=== PATIENT | female | born 1985 | race American Indian/Alaskan Native ===

== ENCOUNTER 2017-11-21 20:48 | Emergency (ER) | payer MEDICAID ==
--- NOTE | 2017-11-21 22:04 | EDPHY ---
H & P Stated Complaint: dizzy ?? vertigo fraser Time Seen by Provider: 11/21/17 22:04 HPI/ROS: HPI CHIEF COMPLAINT: Headache, dizziness, vertigo HISTORY OF PRESENT ILLNESS: This patient 32-year-old female, she has a history of gestational diabetes, she is currently 32 weeks and her due date is January 15, she presents to the emergency room with a headache. And dizziness. She reports to me that she has a long history of vertigo and migraine headaches. She states she has to suffer from dizziness quite often. She presents emergency room stating that around 6:00 p.m. She had dizziness room spinning sensation with associated nausea but not vomiting. And then gradually developed a headache. She describes a frontal throbbing headache. Behind her eyes in front of her ears. She has associated nausea but no vomiting. Denies any neck pain. Denies recent illness denies fever. Denies chest pain or shortness of breath. Denies abdominal pain. Past Medical History: Gestational diabetes. Past Surgical History: No recent surgery Social History: Denies drugs alcohol tobacco. Family History: Noncontributory ROS REVIEW OF SYSTEMS: A comprehensive 10 point review of systems is otherwise negative aside from elements mentioned in the history of present illness. Exam Constitutional nontoxic appearing, triage nursing summary reviewed, vital signs reviewed, awake/alert. Eyes normal conjunctivae and sclera, EOMI, PERRLA. HENT normal inspection, atraumatic, moist mucus membranes, no epistaxis, neck supple/ no meningismus, no raccoon eyes. Respiratory clear to auscultation bilaterally, normal breath sounds, no respiratory distress, no wheezing. Cardiovascular rate normal, regular rhythm, no murmur, no edema, distal pulses normal. Gastrointestinal gravid uterus, 30+ weeks. soft, non-tender, no rebound, no guarding, normal bowel sounds, no distension, no pulsatile mass. Genitourinary no CVA tenderness. Musculoskeletal no midline vertebral tenderness, full range of motion, no calf swelling, no tenderness of extremities, no meningismus, good pulses, neurovascularly intact. Skin pink, warm, & dry, no rash, skin atraumatic. Neurologic awake, alert and oriented x 3, AAOx3, moves all 4 extremities equally, motor intact, sensory intact, CN II-XII intact, normal cerebellar, normal vision, normal speech. Psychiatric normal mood/affect. Heme/Lymph/Immune no lymphadenopathy. Differential Diagnosis: Includes but is not limited to in a particular order electrolyte disturbance, dehydration, vertigo, intracranial bleed, sinus venous thrombosis, urinary tract infection, doubt CVA or doubt vertebral dissection or posterior circulation stroke. She has a normal neurological exam here in emergency room. She is and it is possible she has a sinus venous thrombosis. Medical Decision Making: Plan for this patient IV establishment IV fluid bolus 1 L normal saline, IV Zofran 4 mg for nausea, IV Dilaudid 0.5 mg for pain control. CT scan head without contrast reason for CT scan head includes headache, . Rule out intracranial bleed. MRV to rule out sinus venous thrombosis. Re-evaluate. Re-evaluation: MRI brain without and MR V shows no evidence of sinus venous thrombosis. MRIs were called to me by Dr. Liu. 1252: Patient re-evaluated this time resting comfortably in no acute distress. She is feeling much better. She sitting up in bed eating and drinking. She is requesting discharge. Her neurological exam is unremarkable. Her MRIs have been reviewed and are unremarkable MRI brain without an MRV to rule out sinus venous thrombosis shows no evidence of clot. Clinically I feel the patient most likely is a migraine headache. Recommend she follows up with primary care doctor Return emergency room if there is any worsening symptoms questions concerns including worsening headache, vomiting or fever. She understands. Source: Patient - Personal History LMP (Females 10-55): EDC: 01/15/18 Current Tetanus/Diphtheria Vaccine: Yes Current Tetanus Diphtheria and Acellular Pertussis (TDAP): Yes - Medical/Surgical History Hx Asthma: No Hx Chronic Respiratory Disease: No Hx Diabetes: Yes Hx Cardiac Disease: No Hx Renal Disease: No Hx Cirrhosis: No Hx Alcoholism: No Hx HIV/AIDS: No Hx Splenectomy or Spleen Trauma: No Other PMH: . migraines. appy - Social History Smoking Status: Never smoked Constitutional: Initial Vital Signs Temperature (C) 36.5 C 11/21/17 21:10 Heart Rate 91 11/21/17 21:10 Respiratory Rate 18 11/21/17 21:10 Blood Pressure 119/69 11/21/17 21:10 O2 Sat (%) 97 11/21/17 21:10 O2 Delivery Mode Room Air Allergies/Adverse Reactions: No Known Allergies Allergy (Unverified 11/21/17 21:09) Home Medications: Medication Instructions Recorded Iron 11/21/17 11/21/17 Medical Decision Making - Diagnostics Imaging Results: Imaging Impressions Brain MRI 11/21/17 22:09 Impression: Normal MRI of the brain without contrast. Results called and discussed with Rajinder Dueñas MD at 11/21/2017 23:44. Head MRA 11/21/17 22:48 Impression: No definite evidence of superior sagittal sinus thrombosis. Results called and discussed with Rajinder Dueñas MD at 11/21/2017 23:45. - Data Points Laboratory Results: Laboratory Results 11/21/17 22:20 11/21/17 22:20 11/22/17 11/21/17 11/21/17 00:25 22:20 22:20 WBC 9.02 10^3/uL 10^3/uL (3.80-9.50) RBC 4.23 10^6/uL 10^6/uL (4.18-5.33) Hgb 13.1 g/dL g/dL (12.6-16.3) Hct 38.2 % % (38.0-47.0) MCV 90.3 fL fL (81.5-99.8) MCH 31.0 pg pg (27.9-34.1) MCHC 34.3 g/dL g/dL (32.4-36.7) RDW 13.8 % % (11.5-15.2) Plt Count 242 10^3/uL 10^3/uL (150-400) MPV 9.0 fL fL (8.7-11.7) Neut % (Auto) 70.6 % % (39.3-74.2) Lymph % (Auto) 20.2 % % (15.0-45.0) [place] % (Auto) 8.0 % % (4.5-13.0) Eos % (Auto) 0.7 % % (0.6-7.6) Baso % (Auto) 0.2 % L % (0.3-1.7) Nucleat RBC Rel Count 0.0 % % (0.0-0.2) Absolute Neuts (auto) 6.37 10^3/uL 10^3/uL (1.70-6.50) Absolute Lymphs (auto) 1.82 10^3/uL 10^3/uL (1.00-3.00) Absolute Monos (auto) 0.72 10^3/uL 10^3/uL (0.30-0.80) Absolute Eos (auto) 0.06 10^3/uL 10^3/uL (0.03-0.40) Absolute Basos (auto) 0.02 10^3/uL 10^3/uL (0.02-0.10) Absolute Nucleated RBC 0.00 10^3/uL 10^3/uL (0-0.01) Immature Gran % 0.3 % % (0.0-1.1) Immature Gran # 0.03 10^3/uL 10^3/uL (0.00-0.10) Sodium 135 mEq/L mEq/L (135-145) Potassium 3.8 mEq/L mEq/L (3.3-5.0) Chloride 105 mEq/L mEq/L (97-110) Carbon Dioxide 20 mEq/l L mEq/l (22-31) Anion Gap 10 mEq/L mEq/L (8-16) BUN 6 mg/dL L mg/dL (7-23) Creatinine 0.4 mg/dL L mg/dL (0.6-1.0) Estimated GFR > 60 Glucose 102 mg/dL H mg/dL (70-100) Calcium 9.3 mg/dL mg/dL (8.5-10.4) Urine Color YELLOW Urine Appearance CLEAR Urine pH 7.0 (5.0-7.5) Ur Specific [place] 1.005 (1.002-1.030) Urine Protein NEGATIVE (NEGATIVE) Urine Ketones NEGATIVE (NEGATIVE) Urine Blood NEGATIVE (NEGATIVE) Urine Nitrate NEGATIVE (NEGATIVE) Urine Bilirubin NEGATIVE (NEGATIVE) Urine Urobilinogen NEGATIVE EU EU (0.2-1.0) Ur Leukocyte Esterase NEGATIVE (NEGATIVE) Urine Glucose NEGATIVE (NEGATIVE) Medications Given: Discontinued Medications Hydromorphone HCl (Dilaudid) 0.5 mg IVP EDNOW ONE Stop: 11/21/17 22:10 Last Admin: 11/21/17 22:25 Dose: 0.5 mg Sodium Chloride (Ns) 1,000 mls @ 0 mls/hr IV ONCE ONE; Wide Open PRN Reason: Protocol Stop: 11/21/17 22:09 Last Admin: 11/21/17 22:25 Dose: 1,000 mls Ondansetron HCl (Zofran) 4 mg IVP EDNOW ONE Stop: 11/21/17 22:10 Last Admin: 11/21/17 22:25 Dose: 4 mg Departure - Departure Disposition: Home, Routine, Self-Care Clinical Impression: Dizziness Migraine Qualifiers: Migraine type: other Status migrainosus presence: without status migrainosus Intractability: not intractable Qualified Code(s): G43.809 - Other migraine, not intractable, without status migrainosus Condition: Good Instructions: Vertigo (ED), Acute Headache (ED), Lightheadedness (ED) Additional Instructions: 1. Return to the emergency room if you have any worsening symptoms questions or concerns. 2. Follow up with your primary care doctor Referrals: NONE *PRIMARY CARE P,. [Primary Care Provider] - As per Instructions
[2017-11-21] MEDS ORDERED: NS 1,000 ML IV ONE (22:08)
[2017-11-21] MEDS ORDERED: ONDANSETRON 4 MG/2 ML VIAL IVP ONE (22:09)
[2017-11-21] MEDS ORDERED: HYDROmorphONE/DILAUDID 2 MG/ML INJ IVP ONE (22:09)
[2017-11-21 22:37] LABS: PLATELET COUNT 242 10^3/uL (150-400)
[2017-11-21] MEDS ORDERED: LORazepam 2 MG/ML INJ ONE (22:43)
[2017-11-22 01:11] VITALS: BP 102/60
== END 2017-11-22 01:09 | disposition home or self-care (01) ==
DX: O99.89 Other specified diseases and conditions complicating pregnancy, childbirth and the puerperium (principal); R42 Dizziness and giddiness; O99.353 Diseases of the nervous system complicating pregnancy, third trimester; G43.809 Other migraine, not intractable, without status migrainosus; O24.419 Gestational diabetes mellitus in pregnancy, unspecified control; E86.9 Volume depletion, unspecified; Z3A.32 32 weeks gestation of pregnancy
CPT/HCPCS: 96374; J1170; J2060; J2405

== ENCOUNTER 2018-02-01 13:27 | Inpatient (IN) | payer MEDICAID ==
--- NOTE | 2018-02-01 15:09 | EDPHY ---
HPI/HX/ROS/PE/MDM Narrative: CHIEF COMPLAINT: Fever, chills, body aches HISTORY OF PRESENT ILLNESS: This patient is a 33 year old female one week s/p vaginal delivery with retained products and significant hemorrhage. This was her fourth child. She arrives with her 1 week old daughter complaining of fever, chills, and body aches. The patient was induced Tuesday, 8 days ago, and her daughter was born at 8:29am on Tuesday. The patient had considerable hemorrhage and needed a transfusion. She began feeling poorly this morning. Currently, she endorses abdominal pain and diarrhea. No vomiting. She has noted some redness and tenderness to her right breast. She has been breast feeding the child. The patient denies chest pain, shortness of breath, palpitations, vomiting, urinary complaints, lightheadedness. She does complain of a headache. REVIEW OF SYSTEMS: A comprehensive 10 system review of systems is otherwise negative aside from elements mentioned in the history of present illness and medical decision making. PAST MEDICAL HISTORY: . Appendectomy. Migraines. SOCIAL HISTORY: Lives in [place]. Does not abuse tobacco, drugs, or alcohol. VITAL SIGNS: Reviewed by me GENERAL: Wrapped in blankets, complaining of being chilled. Looks somewhat uncomfortable. No respiratory distress. HEENT: Atraumatic. Eyes: No icterus, no injection. Mouth: moist mucous membranes. No erythema or lesions. Neck: supple with no adenopathy. BREASTS: Right breast tender laterally, feels engorged. No warmth, erythema, or streaking. Left breast unremarkable. LUNGS: Clear to auscultation bilaterally, no wheezes, rhonchi or rales. CARDIAC: Regular rate and rhythm, no rubs, murmurs or gallops. ABDOMEN: Lower abdominal tenderness to palpation. Soft, nondistended, bowel sounds normal. BACK: No CVA tenderness. EXTREMITIES: No trauma. No edema. Range of motion is normal throughout. NEURO: Alert and oriented, grossly nonfocal. SKIN: Warm and dry, no rash. PSYCHIATRIC: Normal mentation, no agitation. Portions of this note were transcribed by a medical records assistant. I personally performed a history, physical exam, medical decision making, and confirmed accuracy of information the transcribed note. ED Course: 33 y/o female 1 week s/p vaginal delivery with hemorrhage presents with fever, chills, and body aches. IV established. Plan for labs including CBC , chemistries, UA, lactic acid, blood cultures. Plan to administer 1L IV NS. Plan for chest x-ray, [place] [address]. Otherwise largely unremarkable labs. Lactic acid is 1.0. 16:[address] Spring, radiologist. US shows hyperechoic region in the endometrium that may be consistent with retained products of conception. 16:[address] Vieyra, DIRECTOR SPORTS. 17:30 Patient has spiked a fever here in the ED. PLan to administer 600mg PO Ibuprofen, 1000mg PO Tylenol, and an additional 1L IV NS for symptom relief. 17:58 Dr. Vieyra at bedside. Dr. Vieyra to admit the patient for post- endometritis, fever. Sepsis Evaluation Note: Severe Sepsis/Septic Shock Care Note The patient presents to the ED with endometritis identified as an acute infection. The patient did have evidence of SIRS with a temperature of 38.4[place] [address], and heart rate of 105. She did not meet criteria for severe sepsis The patient has a venous lactic acid of 1.0. The patient has blood cultures drawn and received clindamycin and gentamicin IV, per the admitting physician MDM: Differential diagnoses for the patient's symptom complex was considered including but not limited to endometritis, prolonged rupture of the membranes, cellulitis, mastitis, urinary tract infection, DVT, PE, pneumonia - Data Points Imaging Results: Imaging Impressions Chest X-Ray 02/01/18 15:10 Impression: Prominence of perihilar interstitial markings and peribronchial cuffing. Findings are nonspecific but can be seen with bronchitis, reactive airway disease, or viral process. Pelvic/Renal Ultrasound 02/01/18 15:19 Impression: 1. Fluid in the endometrial canal and heterogeneity of the endometrium with small hyperechoic focus that is moderately hypervascular. Although these findings can be seen in a normal uterus, the presence of vascularity substantially raises the likelihood of retained products of conception which cannot be excluded. Correlation with surgical history and clinical presentation is recommended. These findings were discussed with Yuridia Sagastume by telephone at 4:30 PM on 2017. Imaging: Discussed imaging studies w/ house calls nurse Radiologist Laboratory Results: Laboratory Results 02/01/18 15:30 02/01/18 15:30 02/01/18 02/01/18 02/01/18 15:30 15:30 15:30 WBC 14.43 10^3/uL H 10^3/uL (3.80-9.50) RBC 4.07 10^6/uL L 10^6/uL (4.18-5.33) Hgb 12.4 g/dL L g/dL (12.6-16.3) Hct 37.6 % L % (38.0-47.0) MCV 92.4 fL fL (81.5-99.8) MCH 30.5 pg pg (27.9-34.1) MCHC 33.0 g/dL g/dL (32.4-36.7) RDW 14.6 % % (11.5-15.2) Plt Count 391 10^3/uL 10^3/uL (150-400) MPV 8.3 fL L fL (8.7-11.7) Neut % (Auto) 89.8 % H % (39.3-74.2) Lymph % (Auto) 5.8 % L % (15.0-45.0) [place] % (Auto) 3.6 % L % (4.5-13.0) Eos % (Auto) 0.1 % L % (0.6-7.6) Baso % (Auto) 0.1 % L % (0.3-1.7) Nucleat RBC Rel Count 0.1 % % (0.0-0.2) Absolute Neuts (auto) 12.96 10^3/uL H 10^3/uL (1.70-6.50) Absolute Lymphs (auto) 0.83 10^3/uL L 10^3/uL (1.00-3.00) Absolute Monos (auto) 0.52 10^3/uL 10^3/uL (0.30-0.80) Absolute Eos (auto) 0.02 10^3/uL L 10^3/uL (0.03-0.40) Absolute Basos (auto) 0.02 10^3/uL 10^3/uL (0.02-0.10) Absolute Nucleated RBC 0.02 10^3/uL H 10^3/uL (0-0.01) Immature Gran % 0.6 % % (0.0-1.1) Immature Gran # 0.08 10^3/uL 10^3/uL (0.00-0.10) PT 13.4 SEC SEC (12.0-15.0) INR 1.00 (0.83-1.16) APTT 28.9 SEC SEC (23.0-38.0) VBG Lactic Acid Sodium 139 mEq/L mEq/L (135-145) Potassium 4.1 mEq/L mEq/L (3.3-5.0) Chloride 105 mEq/L mEq/L (97-110) Carbon Dioxide 21 mEq/l L mEq/l (22-31) Anion Gap 13 mEq/L mEq/L (8-16) BUN 11 mg/dL mg/dL (7-23) Creatinine 0.6 mg/dL mg/dL (0.6-1.0) Estimated GFR > 60 Glucose 86 mg/dL mg/dL (70-100) Calcium 8.9 mg/dL mg/dL (8.5-10.4) Total Bilirubin 0.7 mg/dL mg/dL (0.1-1.4) 02/01/18 15:30 WBC RBC Hgb Hct MCV MCH MCHC RDW Plt Count MPV Neut % (Auto) Lymph % (Auto) [place] % (Auto) Eos % (Auto) Baso % (Auto) Nucleat RBC Rel Count Absolute Neuts (auto) Absolute Lymphs (auto) Absolute Monos (auto) Absolute Eos (auto) Absolute Basos (auto) Absolute Nucleated RBC Immature Gran % Immature Gran # PT INR APTT VBG Lactic Acid 1.0 mmol/L mmol/L (0.7-2.1) Sodium Potassium Chloride Carbon Dioxide Anion Gap BUN Creatinine Estimated GFR Glucose Calcium Total Bilirubin Medications Given: Clindamycin Phosphate/Dextrose (Cleocin 900 Mg (Premix)) 50 mls @ 100 mls/hr IV EDNOW ONE PRN Reason: Protocol Stop: 02/01/18 19:11 Last Admin: 02/01/18 18:46 Dose: 50 mls Discontinued Medications Acetaminophen (Tylenol) 1,000 mg PO EDNOW ONE Stop: 02/01/18 17:36 Last Admin: 02/01/18 17:38 Dose: 1,000 mg Sodium Chloride (Ns) 1,000 mls @ 0 mls/hr IV ONCE ONE; Wide Open PRN Reason: Protocol Stop: 02/01/18 15:29 Last Admin: 02/01/18 15:40 Dose: 1,000 mls Sodium Chloride (Ns) 1,000 mls @ 0 mls/hr IV EDNOW ONE; Wide Open PRN Reason: Protocol Stop: 02/01/18 17:40 Last Admin: 02/01/18 17:40 Dose: 1,000 mls Ibuprofen (Motrin) 600 mg PO EDNOW ONE Stop: 02/01/18 17:36 Last Admin: 02/01/18 17:38 Dose: 600 mg General Time Seen by Provider: 02/01/18 14:48 Initial Vital Signs: Initial Vital Signs Temperature (C) 37.1 C 02/01/18 13:32 Heart Rate 91 02/01/18 13:32 Respiratory Rate 16 02/01/18 13:32 Blood Pressure 125/73 H 02/01/18 13:32 O2 Sat (%) 96 02/01/18 13:32 O2 Delivery Mode Room Air Allergies/Adverse Reactions: No Known Allergies Allergy (Verified 02/01/18 19:08) Home Medications: Medication Instructions Recorded Ferrous Sulfate [Ferrous Sulf 325 650 mg PO DAILY 11/21/17 MG (*)] Vit27&Calcium/Iron/FA 1 each PO DAILY 11/21/17 [] Acetaminophen [Tylenol 325mg (*)] 325 mg PO Q6 PRN 02/01/18 Motrin (*) 600 mg PO DAILY PRN 02/01/18 Sertraline HCl [Zoloft 25mg (*)] 25 mg PO HS 02/01/18 oxyCODONE IR [Oxycodone Ir (*)] 5 mg PO Q6HRS PRN #20 tab 02/03/18 Departure - Departure Disposition: [facility] Clinical Impression: endometritis Fever Qualifiers: Fever type: unspecified Qualified Code(s): R50.9 - Fever, unspecified Condition: Fair Report Scribed for: Yuridia Sagastume Report Scribed by: Sherrie Massey Date of Report: 02/01/18 Time of Report: 18:22
[2018-02-01] MEDS ORDERED: NS 1,000 ML IV ONE ×2 (15:28→17:39)
[2018-02-01 15:40] LABS: PLATELET COUNT 391 10^3/uL (150-400)
[2018-02-01 15:48] LABS: PROTIME(PATIENT) 13.4 SEC (12.0-15.0)
[2018-02-01] MEDS ORDERED: IBUPROFEN 600 MG TAB PO ONE (17:35)
[2018-02-01] MEDS ORDERED: ACETAMINOPHEN 500 MG TAB PO ONE (17:35)
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
[2018-02-01] MEDS ORDERED: CLINDAMYCIN 900 MG/DEXTROSE 50 ML IV ONE (18:42)
[2018-02-01] MEDS ORDERED: DOCUSATE SODIUM 100 MG CAP PO PRN (18:43)
[2018-02-01] MEDS ORDERED: SIMETHICONE 80 MG TAB CHEW PO PRN (18:43)
[2018-02-01] MEDS ORDERED: GENTAMICIN PHARMACY TO DOSE MISC SCH (18:45)
[2018-02-01] MEDS: ACETAMINOPHEN 325 MG TAB PO SCH (20:39)
[2018-02-01] MEDS: oxyCODONE IR 5 MG TAB PO PRN (21:05)
[2018-02-01] MEDS: SERTRALINE HCL 25 MG TAB PO SCH (21:05)
[2018-02-01] MEDS: D5W IV SCH (21:13)
[2018-02-01] MEDS: GENTAMICIN SULFATE IV SCH (21:13)
[2018-02-02] MEDS: oxyCODONE IR 5 MG TAB PO PRN ×4 (01:07→20:19)
[2018-02-02] MEDS: ACETAMINOPHEN 325 MG TAB PO SCH ×4 (01:08→20:20)
[2018-02-02] MEDS: IBUPROFEN 600 MG TAB PO SCH ×4 (01:08→20:19)
[2018-02-02] MEDS: CLINDAMYCIN 900 MG/DEXTROSE 50 ML IV SCH ×3 (03:15→20:21)
[2018-02-02] MEDS: SERTRALINE HCL 25 MG TAB PO SCH ×3 (10:11→21:40)
--- NOTE | 2018-02-02 12:19 | PDMN ---
Medical Necessity Medical necessity: [facility] MGOBD Obstetric and Gynecologic Disease GR33 y/o s/p vag delivery 1 week ago, retained placenta, now presenting with endometritis, potential d&c later today 02/02, IV antibxs (gent and clinda) required and started , temp 38.4C, tachycardic, elevated WBC 14.43. Anticipate>2MN for IV antibx treatment.
[2018-02-02] MEDS: LOPERAMIDE HCL 2 MG CAP PO PRN (12:21)
--- NOTE | 2018-02-02 12:27 | OBPP ---
Progress Note Assessment/Plan: Assessment: ppd# 7 s/p complicated by retained placenta and post hemorrhage hospital day #2 post endometritis - clinically improved on IV abx (clinda and gent) diarrhea -imodium - c diff culture if persists breast feeding depression - on zoloft 02/02/18 12:25 Objective: Total Bilirubin 0.7 mg/dL (0.1-1.4) 02/01/18 15:30 Temp Pulse Resp BP Pulse Ox 36.5 C 74 24 H 106/68 97 02/02/18 11:33 02/02/18 11:33 02/02/18 11:33 02/02/18 11:33 02/02/18 11:33 patient is doing well and feeling much better than yesterday. body aches and general malaise have improved. has developed diarrhea since admission which is her primary complaint right now. breast feeding is going well. normal lochia. tolerating diet. Uterine Position/Fundal Height: Umbilicus -3 Uterine Tone: Firm Physical Exam - Physical Exam Neck: non-tender, full range of motion, supple Respiratory: chest non-tender, lungs clear, normal breath sounds Cardiac/Chest: normal peripheral pulses, regular rate, rhythm Abdomen: normal bowel sounds, non-tender, other (fundus firm ) Skin: normal color, warm/dry Neuro/Psych: no motor/sensory deficits, alert, normal mood/affect, oriented x 3
[2018-02-02] MEDS: GENTAMICIN SULFATE IV SCH (21:39)
[2018-02-02] MEDS: D5W IV SCH (21:39)
[2018-02-03] MEDS: CLINDAMYCIN 900 MG/DEXTROSE 50 ML IV SCH ×2 (03:14→11:06)
[2018-02-03] MEDS: ACETAMINOPHEN 325 MG TAB PO SCH ×2 (03:14→09:39)
[2018-02-03] MEDS: IBUPROFEN 600 MG TAB PO SCH ×2 (03:14→09:39)
[2018-02-03] MEDS: oxyCODONE IR 5 MG TAB PO PRN ×2 (03:14→09:40)
[2018-02-03 03:17] VITALS: BP 112/70
[2018-02-03] MEDS: LOPERAMIDE HCL 2 MG CAP PO PRN (09:42)
--- NOTE | 2018-02-03 10:43 | SOAPPROG ---
SOAP Progress Note Assessment/Plan: Assessment: ppd# 8 s/p complicated by retained placenta and post hemorrhage hospital day #3 post endometritis - clinically improved on IV abx (clinda and gent) - will stop those and dc home today (no plan for orals) - No further clinical fevers, pain is improved but not resolved. diarrhea -imodium - c diff culture if persists breast feeding depression - on zoloft F/u with primary OB provider within the next 1-2 days. Precautions given for calling with repeat fevers, worsening pain, etc. Subjective: Shannan is feeling much better this AM - feels ready for home. No further fevers, belly/uterine pain is improved but not gone. Objective: Vital Signs Temp Pulse Resp BP Pulse Ox 36.3 C 71 16 112/70 98 02/03/18 03:16 02/03/18 03:16 02/03/18 03:16 02/03/18 03:16 02/03/18 03:16 Laboratory Results 02/03/18 03:20 02/02/18 02/03/18 02/04/18 05:59 05:59 05:59 Intake Total 200 Balance 200 PT 13.4 SEC (12.0-15.0) 02/01/18 15:30 INR 1.00 (0.83-1.16) 02/01/18 15:30 Physical Exam - Physical Exam General Appearance: alert, no apparent distress Abdomen: normal bowel sounds, soft, other (Still moderately tender with fundal pressure/massage, but improved), No distended, No guarding, No rebound ICD10 Worksheet Patient Problems: Problems Problem Status Onset Fever Acute endometritis Acute
--- NOTE | 2018-02-03 10:44 | PDDCSUM ---
Discharge Summary Discharge Summary: Admitted on the above date via the ED with new dx of endometritis. Pelvic US as below- Pelvic US - 12x7x9.5cm uterus with fluid in endometrial canal. 8mm hyperechoic focus in anterior endometrium "with moderate increased surrounding vascularity" , normal appearing ovaries. No free fluid. 33 PPD#1 with presumed endometritis. Possibility of small amount of retained placenta per US, but could also be a normal pp finding. Plan from ED: Admit to Mom/Baby for IV abx - gent and clinda with a plan for IV abx until afebrile for at least 24 hours. First dose of Clindamycin given in the ED. If bleeding becomes abnormal or does not respond to abx, may want to consider D& C. She was admited and treated with 48 hrs of IV gent and clinda. She did have one additional fever early in the morning of HD1, but then afebrile after and pain steadily improved. DC'd home with no plan for orals - f/u with primary OB provider in 1-2 days.
[2018-02-03] MEDS ORDERED: SERTRALINE HCL 25 MG TAB PO SCH (21:00)
== END 2018-02-03 13:15 | disposition home or self-care (01) | DRG 561 ==
LOC: FOB 20:33 → OBSVTOIN 02-02 12:10
PROVIDERS: ADMIT Hospitalist; ATTEND Hospitalist
DX: O86.12 Endometritis following delivery (principal)
CPT/HCPCS: 96365; J1580

== ENCOUNTER 2018-06-29 22:08 | Emergency (ER) | payer MEDICAID ==
[2018-06-29] MEDS ORDERED: fentaNYL 100 MCG/2 ML INJ IVP ONE ×2 (22:36→23:53)
[2018-06-29] MEDS ORDERED: NS 1,000 ML IV ONE (22:36)
[2018-06-29] MEDS ORDERED: ONDANSETRON 4 MG/2 ML VIAL IVP ONE (22:39)
--- NOTE | 2018-06-29 22:42 | EDPHY ---
General Time Seen by Provider: 06/29/18 22:22 Narrative: CLINICAL IMPRESSION: Left lower quadrant abdominal pain, nausea ASSESSMENT/PLAN: 33-year-old female presents to the emergency department with several hours of atraumatic left lower quadrant abdominal pain associated with 1 episode of nausea and nonbilious, nonbloody vomiting. She is afebrile with stable vital signs. Initially appears uncomfortable, preferring to sit up, tender to left lower quadrant with radiation to flank. Pain nearly 100% improved after a total of 100 mcg fentanyl. Urine shows microscopic hematuria without pyuria or bacteriuria. Patient is amenorrheic secondary to breast feeding. She is not . Pelvic ultrasound shows no evidence of ovarian cyst, torsion, salpingitis, TOA, or free fluid. CT noncontrast shows no evidence of ureterolithiasis, nephrolithiasis, hydronephrosis and was otherwise unremarkable according to Radiology. Patient was feeling much better on reassessment, able to tolerate water. Encouraged her to follow up with primary care in 24 hr for recheck, low threshold for return to ED sooner as outlined in person and discharge papers. DIFFERENTIAL DX: Abdominal pain includes but not limited to urinary tract infection, pyelonephritis, infection, ectopic , salpingitis, TOA, ovarian torsion, ovarian cyst, endometriosis, uterine fibroids, acute appendicitis, acute diverticulitis, small-bowel obstruction, constipation ED PROCEDURES: See lab and/or imaging results below ED COURSE: 11:50 p.m.: Preliminary review of ultrasound by a certified dialysis technician shows no evidence of acute ovarian cyst or mass. Patient is not . She does have hematuria in the setting of amenorrhea secondary to breast feeding. There is possibility for kidney stone. I discussed this with the patient and she agrees to CT scan. 12:10 p.m.: Ultrasound read by off site radiologist Dr. Coulter, dictator report given to me at this time. No evidence of left ovarian cyst or torsion. Small right-sided paraovarian cyst with no acute process identified on the left. 12:23AM: preliminary CT read by myself shows no obvious ureterolithiasis, nephrolithiasis, hydronephrosis. Final CT scan read by Dr. Ruvalcaba in no at 12:27 a.m.. No evidence of ureterolithiasis, bowel obstruction or pneumoperitoneum. There is mention of fluid-filled nondilated loops of proximal jejunum reflecting possible mild enteritis. On reassessment, patient is lying comfortably in the bed with her baby, reports no pain. CHIEF COMPLAINT: LLQ abdominal pain HPI: 33 yo female, female presents to the ER with LLQ abdominal pain that radiates to left flank and began at 7pm tonight. She took Tylenol and Aleve at 8pm without relief and reports pain is worsening. She had one episode of nausea and non-bilious, non-bloody vomiting. No diarrhea or constipation and no bloody stools. She is currently , amenorrheic bc of this, and reports she did have intercourse 2 months ago. She has no abnormal complaints , dysuria, urgency or frequency. No hx of kidney stones. She has had a history of ovarian cysts and states this feels similar. She also reports prior appendectomy and endometritis in January of last year secondary to retained product. She otherwise has no significant abdominal surgery chronic abdominal complaints. PAST MEDICAL HISTORY: Endometritis after delivery of 4th child See nurse/triage notes for additional history if applicable Pertinent Past Surgical History: Appendectomy Family History: None reported Social History: Currently breast feeding her 6-month-old REVIEW OF SYSTEMS: All other systems negative Constitutional: No fever, no chills, positive for appetite change. Cardiovascular: No chest pain, no palpitations. Respiratory: No cough, no shortness of breath. Gastrointestinal: Positive for abdominal pain, positive for nausea and vomiting , diarrhea, positive left flank pain. Genitourinary: No hematuria, dysuria, positive left flank pain, pelvic pain Musculoskeletal: No back pain, joint swelling, joint pain, myalgias. Skin: No rashes, color change. Neurological: No headache, dizziness, weakness. PHYSICAL EXAM: General Appearance: Alert, oriented, appropriate, cooperative, appears uncomfortable, prefers to sit up and has more pain laying back, well hydrated, non-toxic appearing, VSS, no hypoxia. Respiratory: There are no retractions, lungs are clear to auscultation. Cardiac: Regular rate and rhythm, no murmurs or gallops. Gastrointestinal: Abdomen is soft, tender to left lower quadrant, bowel sounds normal, no masses/hernia, no rigidity, mild guarding to left lower quadrant no focal peritoneal findings. MEDICAL DECISION MAKING: Patient was seen independently. Secondary supervising physician at time of evaluation was Yuan. Diagnosis: Left lower quadrant abdominal pain. New, requires workup Summary: See Assessment and Plan for summary of ED visit Clinical lab tests: ordered / reviewed. Independent visualization of images, tracing, or specimens: Yes. Decision to obtain medical records or history from someone other than the patient: No Patient Progress: Improved. - Diagnostics Imaging Results: Imaging Impressions Pelvic/Renal Ultrasound 06/29/18 22:40 Impression: 1. Right paraovarian 1.7-cm simple cyst. 2. No ovarian torsion. 3. IUD appears in good position. Preliminary report given by [facility] to Emergency Department physician, Pro Cuenca PA-C at 0001 hours on June 30, 2018. Final report concurs with initial preliminary interpretation. Abdomen/Pelvis CT 06/29/18 23:53 Impression: 1. No nephrolithiasis or hydronephrosis. 2. Mild constipation. 3. IUD in good position without adnexal masses. 4. Prior appendectomy without bowel obstruction. Attention: This CT examination is specifically designed to evaluate patients who are clinically suspected of having acute obstructive uropathy. This examination does not use radiographic contrast, and as such, provides only a limited evaluation of the abdomen, pelvis and retroperitoneum. If there is further clinical suspicion for pathological conditions other than obstructive uropathy, a complete CT evaluation of the abdomen and pelvis utilizing intravenous, oral, and rectal contrast should be considered. Preliminary report given by [facility] to Emergency Department physician, Pro Cuenca PA-C at 0027 hours on June 30, 2018. Final report concurs with initial preliminary interpretation. - History Smoking Status: Never smoked - Objective Vital Signs: Initial Vital Signs Temperature (C) 36.3 C 06/29/18 22:14 Heart Rate 77 06/29/18 22:14 Respiratory Rate 16 06/29/18 22:14 Blood Pressure 127/80 H 06/29/18 22:14 O2 Sat (%) 98 06/29/18 22:14 O2 Delivery Mode Room Air Allergies/Adverse Reactions: No Known Allergies Allergy (Verified 02/01/18 19:08) Home Medications: Medication Instructions Recorded Vit27&Calcium/Iron/FA 1 each PO DAILY 11/21/17 [] Sertraline HCl [Zoloft 25mg (*)] 25 mg PO HS 02/01/18 Naproxen 06/29/18 Laboratory Results: Laboratory Results 06/29/18 23:30 Medications Given: Discontinued Medications Fentanyl (Sublimaze) 50 mcg IVP EDNOW ONE Stop: 06/29/18 22:37 Last Admin: 06/29/18 22:47 Dose: 50 mcg Fentanyl (Sublimaze) 50 mcg IVP EDNOW ONE Stop: 06/29/18 23:54 Last Admin: 06/29/18 23:59 Dose: 50 mcg Sodium Chloride (Ns) 1,000 mls @ 0 mls/hr IV EDNOW ONE; Wide Open PRN Reason: Protocol Stop: 06/29/18 22:37 Last Admin: 06/29/18 22:47 Dose: 1,000 mls Ondansetron HCl (Zofran) 4 mg IVP EDNOW ONE Stop: 06/29/18 22:40 Last Admin: 06/29/18 22:47 Dose: 4 mg Departure - Departure Disposition: Home, Routine, Self-Care Clinical Impression: Left lower quadrant abdominal pain of unknown etiology Hematuria Qualifiers: Hematuria type: unspecified type Qualified Code(s): R31.9 - Hematuria, unspecified Condition: Good Instructions: Hematuria (ED), Abdominal Pain (ED) Additional Instructions: DISCHARGE INSTRUCTIONS FROM YOUR DOCTOR Thank you for visiting our emergency department today. Please keep in mind that discharge from the emergency department does not mean that there is nothing wrong - it simply means that we have not identified an emergency condition that requires further evaluation or treatment in the hospital. You should always plan to follow up with primary care for re-evaluation of your condition in the next 2-3 days. If you have been referred to a specialist, please call as soon as possible (today or tomorrow) to schedule your follow up appointment at the appropriate time. EMERGENCY DEPARTMENT EVALUATION TONIGHT INCLUDED PELVIC ULTRASOUND, LAB WORK, AND CT SCAN OF THE ABDOMEN. YOU HAVE NO EVIDENCE OF OVARIAN CYST, OVARIAN TORSION, OR MASS. CT SCAN SHOWED NO EVIDENCE OF KIDNEY STONE, BOWEL OBSTRUCTION , OR SEVERE CONSTIPATION. PAIN HAD IMPROVED WITH IV PAIN MEDICATIONS. WE RECOMMEND FOLLOWING UP WITH HER PRIMARY CARE DOCTOR IN 24-48 HOURS. YOU DID HAVE BLOOD IN HER URINE WHICH MAY INDICATE BEGINNING OF A MENSTRUAL CYCLE, HOWEVER IF YOU DO DO NOT START YOUR PERIOD, WE RECOMMEND HAVING RECHECK OF URINE IN 1 WEEK TO SEE IF BLOOD CLEARS. RETURN TO THE EMERGENCY DEPARTMENT IMMEDIATELY FOR WORSENING OR RETURN OF ABDOMINAL PAIN, VOMITING, FEVER GREATER THAN 100.4, OR ANY OTHER CONCERNS. People present with illnesses and injuries in different ways, and it is always possible that we have missed something. You may always return for re-evaluation if symptoms worsen or if they are not improving or if you develop new/different symptoms. Again, thank you for choosing our emergency department. We hope that you feel better. Referrals: CANDACE FUENTES [Other] - 1-2 days without fail
[2018-06-30 01:14] VITALS: BP 92/50
== END 2018-06-30 01:12 | disposition home or self-care (01) ==
DX: R10.32 Left lower quadrant pain (principal); R31.9 Hematuria, unspecified; N83.291 Other ovarian cyst, right side; Z90.89 Acquired absence of other organs; Z97.5 Presence of (intrauterine) contraceptive device
CPT/HCPCS: 96374; J3010

== ENCOUNTER 2018-10-05 22:42 | Emergency (ER) | payer MEDICAID ==
[2018-10-05] MEDS ORDERED: METOCLOPRAMIDE 10 MG/2 ML VIAL IVP ONE (23:12)
[2018-10-05] MEDS ORDERED: KETOROLAC 15 MG/1 ML SDV IVP ONE (23:12)
[2018-10-05] MEDS ORDERED: NS 1,000 ML IV ONE (23:12)
--- NOTE | 2018-10-05 23:16 | EDPHY ---
H & P Stated Complaint: LIGHTHEADED, DIZZY Time Seen by Provider: 10/05/18 22:49 HPI/ROS: HPI The patient presents with headache and dizziness which began tonight at approximately 5:00 p.m. While she was lying down taking a nap. She had slow onset of diffuse throbbing headache which has been constant ever since. Later, this became associated with nausea and feeling of dizziness which feels to her as if the room is spinning. She has history of similar migraine associated with vertigo though has not had this for several years. She has not taken any medication at home. She has not had any vomiting. She does not have any vision change. She is able to walk without difficulty.. REVIEW OF SYSTEMS 10 systems were reviewed and negative with the exception of the elements mentioned in the history of present illness. PMHx: History of migraine headaches, gestational diabetes, asthma Soc Hx: Here with her 4 children, currently breast feeding PHYSICAL General Appearance: Alert, no distress Eyes: Pupils equal and round no pallor or injection ENT, Mouth: Mucous membranes moist Respiratory: There are no retractions, lungs are clear to auscultation Cardiovascular: Regular rate and rhythm Gastrointestinal: Abdomen is soft and non-tender, no masses, bowel sounds normal Neurological: A&O, cranial nerves 2-12 intact, there is no nystagmus, normal finger to nose and heel to bazan testing, no pronator drift Skin: Warm and dry, no rashes Musculoskeletal: Neck is supple non tender Extremities: symmetrical, full range of motion Psychiatric: Patient is oriented X 3, there is no agitation Source: Patient Exam Limitations: No limitations - Personal History LMP (Females 10-55): Unknown Current Tetanus Diphtheria and Acellular Pertussis (TDAP): Yes - Medical/Surgical History Hx Asthma: No Hx Chronic Respiratory Disease: No Hx Diabetes: No Hx Cardiac Disease: No Hx Renal Disease: No Hx Cirrhosis: No Hx Alcoholism: No Hx HIV/AIDS: No Hx Splenectomy or Spleen Trauma: No Other PMH: . h/o GDM. migraines. appy. Depression. PP hemorrhage r/t retained placenta, required transfusion (with G4) - Social History Smoking Status: Never smoked Constitutional: Initial Vital Signs Temperature (C) 37.1 C 10/05/18 22:45 Heart Rate 99 10/05/18 22:45 Respiratory Rate 16 10/05/18 22:45 Blood Pressure 129/79 H 10/05/18 22:45 O2 Sat (%) 95 10/05/18 22:45 O2 Delivery Mode Room Air Allergies/Adverse Reactions: No Known Allergies Allergy (Verified 02/01/18 19:08) Home Medications: Medication Instructions Recorded Vit27&Calcium/Iron/FA 1 each PO DAILY 11/21/17 [] Sertraline HCl [Zoloft 25mg (*)] 25 mg PO HS 02/01/18 Naproxen 06/29/18 Medical Decision Making Differential Diagnosis: 33-year-old female with history of migraine headaches associated with vertigo presents from home with headache and dizziness which began slowly at about 5:00 p.m. While lying down. Associated with mild photophobia. Here vital signs normal, normal neurologic exam. Given prior history of migraine, slow onset of headache, normal neurologic exam, I suspect this is likely her migraine headache. I have considered subarachnoid hemorrhage, however with her neurologic exam being normal I feel this is less likely, meningitis is unlikely as well. Plan for IV fluids and migraine cocktail. Patient was observed for about 2 hr in the emergency department and felt better after receiving above treatment. She would like to go home. I have discharged her. - Data Points Medications Given: Discontinued Medications Diphenhydramine HCl (Benadryl Injection) 25 mg IVP EDNOW ONE Stop: 10/05/18 23:13 Last Admin: 10/05/18 23:24 Dose: 25 mg Sodium Chloride (Ns) 1,000 mls @ 0 mls/hr IV EDNOW ONE; Wide Open PRN Reason: Protocol Stop: 10/05/18 23:13 Last Admin: 10/05/18 23:23 Dose: 1,000 mls Ketorolac Tromethamine (Toradol) 15 mg IVP EDNOW ONE Stop: 10/05/18 23:13 Last Admin: 10/05/18 23:24 Dose: 15 mg Metoclopramide HCl (Reglan Injection) 10 mg IVP EDNOW ONE Stop: 10/05/18 23:13 Last Admin: 10/05/18 23:24 Dose: 10 mg Departure - Departure Disposition: Home, Routine, Self-Care Clinical Impression: Migraine headache, Vertigo Condition: Good Instructions: Migraine Headache (ED) Referrals: CANDACE FUENTES [Other] - As per Instructions
[2018-10-06 01:07] VITALS: BP 121/77
== END 2018-10-06 01:06 | disposition home or self-care (01) ==
DX: G43.909 Migraine, unspecified, not intractable, without status migrainosus (principal); R42 Dizziness and giddiness; E86.9 Volume depletion, unspecified; J45.909 Unspecified asthma, uncomplicated; F32.9 Major depressive disorder, single episode, unspecified
CPT/HCPCS: 96374; J1200; J1885; J2765

== ENCOUNTER 2018-10-13 22:05 | Emergency (ER) | payer MEDICAID ==
[2018-10-13] MEDS ORDERED: diphenhydrAMINE 25 MG CAP PO ONE (23:12)
--- NOTE | 2018-10-13 23:44 | EDPHY ---
General Time Seen by Provider: 10/13/18 22:57 Narrative: CLINICAL IMPRESSION: Allergic reaction ASSESSMENT/PLAN: 33-year-old female presents to the emergency department complaining of bilateral upper arm itching after donating plasma today. Patient has very faint macular rash to both arms, no evidence of phlebitis, cellulitis, compartment syndrome, thrombosis, or anaphylaxis. She has no chest pain or chest tightness, is tolerating secretions well, has no hypoxia or respiratory distress and no audible wheezing or stridor. She received oral Benadryl and on reassessment was sleeping. She was discharged home with outpatient care and PCP follow-up. Warning signs for return to ED sooner discussed discharge. DIFFERENTIAL DX: Differential includes but not limited to in no particular order, mild allergic reaction, anaphylaxis, infection ED COURSE: Patient reassessed after receiving Benadryl. She is sleeping well her children are watching a video on her phone. She appears in no distress. CHIEF COMPLAINT: Allergic reaction HPI: 33-year-old female presents to the emergency department complaining of itching to both of her arms after donating plasma today. Patient reports she has donated plasma in the past and never had a reaction like this. She did not take anything prior to arrival because she states "I do not have anything in my house". She arrives with her 2 young children 1 of which she is breast feeding. She reports no difficulty breathing, swallowing, no chest pain or chest tightness, no abdominal pain PAST MEDICAL HISTORY: No reported past medical history of anaphylaxis or severe allergic reaction See triage summary and nurse notes for addition applicable history REVIEW OF SYSTEMS: A full 10 point review of systems was negative except for those mentioned in HPI. PHYSICAL EXAM: General Appearance: Alert, oriented, appropriate, cooperative, NAD, well hydrated, non-toxic appearing, VSS, no hypoxia. HEENT. No intraoral lesion, swelling, uvulitis, tonsillitis, or evidence of Tab's angina. Tolerating secretions well Neck: Supple, nontender, no lymphadenopathy, no midline pain, FROM, no meningismus. Respiratory: There are no retractions, lungs are clear to auscultation. Cardiac: Regular rate and rhythm, no murmurs or gallops. Skin: Faint, slightly raised, macular rash to bilateral arms. No rash to chest , back, abdomen or legs MEDICAL DECISION MAKING: Patient was seen independently. Secondary supervising physician at time of evaluation was: Dr. Dueñas . Diagnosis: Mild allergic reaction. New, requires workup Summary: See Assessment and Plan for summary of ED visit Patient Progress: Stable for discharge. - History Smoking Status: Never smoked - Objective Vital Signs: Initial Vital Signs Temperature (C) 36.8 C 10/13/18 22:08 Heart Rate 108 H 10/13/18 22:08 Respiratory Rate 18 10/13/18 22:08 Blood Pressure 122/77 H 10/13/18 22:08 O2 Sat (%) 95 10/13/18 22:08 O2 Delivery Mode Room Air Allergies/Adverse Reactions: Latex, Natural Rubber Allergy (Verified 10/13/18 22:12) Home Medications: Medication Instructions Recorded Sertraline HCl [Zoloft 25mg (*)] 25 mg PO HS 02/01/18 Naproxen 06/29/18 Amitriptyline HCl 10/13/18 Medications Given: Discontinued Medications Diphenhydramine HCl (Benadryl) 50 mg PO EDNOW ONE Stop: 10/13/18 23:13 Last Admin: 10/13/18 23:36 Dose: 50 mg Departure - Departure Disposition: Home, Routine, Self-Care Clinical Impression: Allergic reaction Qualifiers: Encounter type: initial encounter Qualified Code(s): T78.40XA - Allergy, unspecified, initial encounter Condition: Good Instructions: Allergies (ED) Additional Instructions: DISCHARGE INSTRUCTIONS FROM YOUR DOCTOR Thank you for visiting our emergency department today. You were treated by a physician assistant branch operations manager today and your case was reviewed with our ED Attending physician. Please keep in mind that discharge from the emergency department does not mean that there is nothing wrong - it simply means that we have not identified an emergency condition that requires further evaluation or treatment in the hospital. You should always plan to follow up with primary care for re- evaluation of your condition in the next 2-3 days. If you have been referred to a specialist, please call as soon as possible (today or tomorrow) to schedule your follow up appointment at the appropriate time. YOUR TREATED WITH BENADRYL FOR PROBABLE ALLERGIC REACTION. YOU CAN CONTINUE TO TAKE THIS AT HOME NEEDED. YOU CAN ALSO TAKE PEPCID AC WHICH WILL HELP WITH ITCHING. AVOID HOT SHOWERS. FOLLOW UP WITH A PRIMARY CARE DOCTOR. RETURN TO ED FOR WORSENING RASH, SHORTNESS OF BREATH, CHEST TIGHTNESS, OR ANY OTHER CONCERN. People present with illnesses and injuries in different ways, and it is always possible that we have missed something. You may always return for re-evaluation if symptoms worsen or if they are not improving or if you develop new/different symptoms. Again, thank you for choosing our emergency department. We hope that you feel better. Referrals: CANDACE FUENTES [Other] - 1-2 days without fail
[2018-10-14 00:02] VITALS: BP 118/80
== END 2018-10-14 00:02 | disposition home or self-care (01) ==
DX: R21 Rash and other nonspecific skin eruption (principal); T78.40XA Allergy, unspecified, initial encounter